=== PATIENT | male | born 1955 | race Caucasian/White ===

== ENCOUNTER 2023-07-27 12:58 | Day surgery (SDC) | payer MEDICARE, SELFPAY ==
--- NOTE | 2023-07-27 12:55 | P.CONAN_ITS ---
Documented by User: Christiana Craft MD 07/27/23 15:15 HPI - Anesthesia Eval Consult details Narrative: 68 yo male patient for Colonoscopy PMFSH Active Problems Active Problems: HTN COPD Gout Hyperlipidemia Smoker. Last cigarette this morning 07/27/23 Past Medical History Medical History Gout COPD (chronic obstructive pulmonary disease) Elevated cholesterol HTN (hypertension) Family History Family history of problems with anesthesia: No Surgical History Surgical History Hx of colectomy H/O colonoscopy History of Problems with Anesthesia: No Social History Social History Patient Tobacco Use Status: Current everyday Tobacco user Tobacco use type: Cigarette Cigarettes Per Day: 10 Use of substances other than those prescribed or required for medical reasons: No Are you DNR?: No Advance Directives: No Advance Directives Information Provided: Yes Meds Allergies Allergy/AdvReac Type Severity Reaction Status Date / Time No Known Allergies Allergy Verified 07/27/23 13:24 [No Known Allergies*] Home Medications Medication Instructions Recorded Confirmed Last Taken Type albuterol sulfate 90 mcg/actuation inhalation 07/24/23 Unknown History aerosol inhaler allopurinol 100 mg tablet 100 mg PO DAILY 07/24/23 07/24/23 Unknown History amlodipine 10 mg tablet 10 mg PO DAILY 07/24/23 07/24/23 Unknown History budesonide-formoterol HFA 160 2 puff inhalation BID 07/24/23 07/24/23 Unknown History mcg-4.5 mcg/actuation aerosol inhaler (Symbicort) ezetimibe 10 mg tablet 10 mg PO DAILY 07/24/23 07/24/23 Unknown History Exam Height,Weight and Vital Signs: Height 6 ft 1 in Weight 117.934 kg Vital Signs Temp Pulse Resp BP Pulse Ox O2 Del Method 07/27/23 13:46 97.9 F 90 16 135/86 93 Room Air Airway Mallampati Class: III TM Dist: >3cm Neck ROM: Full Loose/Missing/Broken Teeth: Yes (Some missing teeth. Denies broken or loose teeth) Heart: RRR Lungs: Diminished. Occasional wheeze Assessment and Plan Assessment Anesthesia Assessment: Anesthesia Plan Discussed and Chart Reviewed Final Anesthetic Review Family History of Problems with Anesthesia: No History of Problems with Anesthesia: No NPO: Yes ASA Class: III Final Preanesthetic Review: No Changes in Pt Med Stat, Meds/Allgs Chart Reviewed, Consent Obtained/Reviewed and Anes Risks/Benef Reviewed Patient Risk: Intermediate Procedure Risk: Low Assessment/Block/Sedation in SS: Assess/Block/Sedation-SS Anesthetic Plan Anesthetic Plan: MAC: Disposition: Standard PACU Documented by User: Melisa Olson MD [facility] Past Medical History Medical History Gout COPD (chronic obstructive pulmonary disease) Elevated cholesterol HTN (hypertension) Surgical History Surgical History Hx of colectomy H/O colonoscopy Social History Social History Patient Tobacco Use Status: Current everyday Tobacco user Tobacco use type: Cigarette Cigarettes Per Day: 10 Use of substances other than those prescribed or required for medical reasons: No Are you DNR?: No Advance Directives: No Advance Directives Information Provided: Yes Meds Allergies Allergy/AdvReac Type Severity Reaction Status Date / Time No Known Allergies Allergy Verified 07/27/23 13:24 [No Known Allergies*] Active Medications: Current Medications Lactated Ringer's (Lr) 1,000 mls @ 50 mls/hr IVCONT .Q20H JÚNIOR Home Medications Medication Instructions Recorded Confirmed Last Taken Type albuterol sulfate 90 mcg/actuation inhalation 07/24/23 Unknown History aerosol inhaler allopurinol 100 mg tablet 100 mg PO DAILY 07/24/23 07/24/23 Unknown History amlodipine 10 mg tablet 10 mg PO DAILY 07/24/23 07/24/23 Unknown History budesonide-formoterol HFA 160 2 puff inhalation BID 07/24/23 07/24/23 Unknown History mcg-4.5 mcg/actuation aerosol inhaler (Symbicort) ezetimibe 10 mg tablet 10 mg PO DAILY 07/24/23 07/24/23 Unknown History Exam Exam Date and Time: July 27, 2023 [id number]
[2023-07-27 13:25] VITALS: BMI 34.3
[2023-07-27 13:46] VITALS: BP 135/86; PULSE 90; RESP 16; TEMP 36.6; O2SAT 93
[2023-07-27] MEDS: Lactated Ringers 1,000 ML 50 ML IVCONT (14:02)
[2023-07-27 15:35] VITALS: BP 108/60; PULSE 88; RESP 16; TEMP 36.6; O2SAT 96
--- NOTE | 2023-07-27 15:36 | PM.OP ---
Brief Operative Note Date of Service: 07/27/23 Pre-op diagnosis: Screening Post-op diagnosis: other (Polyp) Procedure: Colonoscopy to the anastomosis and small bowel with biopsy and removal of polyp Surgeon: Ashwin Garland MD Anesthesia: MAC Was an Cut Out And Marking Machine Operator used for this Procedure?: No Estimated blood loss (mL): 2.0 Pathology: other (A. Polyp at 20cm) Condition: stable Disposition: PACU
[2023-07-27 15:50] VITALS: BP 155/85; PULSE 81; RESP 18; TEMP 36.1; O2SAT 96
--- NOTE | 2023-07-28 10:17 | OP_ITS ---
DATE OF SERVICE: 07/27/2023 SURGEON: Ashwin Garland MD INDICATIONS: The patient presents for evaluation of colorectal cancer screening and prior history of tubular adenomas of the colon. Full consent has been obtained from him for the procedure, including risks of bleeding and perforation. PREOPERATIVE DIAGNOSIS: Colorectal cancer screening and personal history of tubular adenoma of the colon. POSTOPERATIVE DIAGNOSIS: Colorectal cancer screening and personal history of tubular adenoma of the colon, small colon polyp, normal anastomosis, sigmoid diverticulosis, and internal hemorrhoids. PROCEDURE PERFORMED: Colonoscopy to the anastomosis and small bowel with biopsy and removal of polyp. ESTIMATED BLOOD LOSS: COMPLICATIONS: ANESTHESIA: Monitored anesthesia care. ASSISTANTS: SPECIMENS: DESCRIPTION OF PROCEDURE: The patient was placed in the left lateral decubitus position. The digital rectal exam revealed no abnormalities. The Olympus video pediatric colonoscope was entered into the rectum and advanced easily to the level of the anastomosis. The small bowel was visualized and appeared normal. The anastomosis appeared normal. The scope was slowly withdrawn assessing all mucosal surfaces carefully. Preparation was excellent. At 20 cm was a flat, approximately 4 mm polyp, which was biopsied and completely removed with cold biopsy forceps. I did not visualize any other polyps, colitis, nor angiodysplasia. There was a [id number] amount of sigmoid diverticulosis. In the rectum, scope was retroflexed visualizing small internal hemorrhoids, but no other pathology. The rectal mucosa appeared normal. The scope was straightened and withdrawn from the patient. He tolerated the procedure well and was returned to the recovery area in stable condition. IMPRESSION: 1. Small colon polyp. 2. Diverticulosis. 3. Internal hemorrhoids. 4. Normal anastomosis. PLAN: The results of biopsy will be checked. I would recommend a repeat colonoscopy in 3 years for further surveillance. He will otherwise see me on a p.r.n. basis. MD DEYSI Hanson/CARLOS / [id number]
== END 2023-07-27 16:20 | disposition home or self-care (01) ==
PROVIDERS: PCP Internal Medicine Endocrinology, Diabetes & Metabolism; Visit Provider Internal Medicine
PROC: 0DJD8ZZ Inspection of Lower Intestinal Tract, Via Natural or Artificial Opening Endoscopic (ICD-10-PCS; CPT 45378; principal; 2023-07-27 14:20)
DX: Z12.11 Encounter for screening for malignant neoplasm of colon (principal); K63.5 Polyp of colon; K57.30 Diverticulosis of large intestine without perforation or abscess without bleeding; K64.8 Other hemorrhoids; K63.89 Other specified diseases of intestine; Z86.010 Personal history of colon polyps; I10 Essential (primary) hypertension; E78.5 Hyperlipidemia, unspecified; J44.9 Chronic obstructive pulmonary disease, unspecified; F17.210 Nicotine dependence, cigarettes, uncomplicated; Z79.899 Other long term (current) drug therapy
CPT/HCPCS: 45380; 88305; J2704